=== PATIENT | female | born 1975 | race Caucasian/White ===

== ENCOUNTER → 2016-12-26 | Outpatient (CLI) | payer OTHER ==
[~2016-12-26] MED LIST: AMOXICILLIN500 M2 PO; CYCLOBENZAPRINE10 MG PO; PREDNISONE10 MG PO; VIBRAMYCIN100 MG PO
== END | disposition home or self-care (01) ==
LOC: MAMMO 15:40
DX: Z12.31 Encounter for screening mammogram for malignant neoplasm of breast (principal)

== ENCOUNTER 2017-04-16 16:15 | Emergency (ER) | payer OTHER ==
[~2017-04-16] VITALS: Ht 165.1 cm; Wt 75.7 kg
[2017-04-16] MEDS ORDERED: NAPROSYN500 MG PO (16:52)
[2017-04-16] MEDS ORDERED: CHLORZOXAZONE500 M2 PO (16:52)
== END 2017-04-16 18:06 | disposition home or self-care (01) ==
LOC: ED 16:15
DX: M54.5 Low back pain (principal); R03.0 Elevated blood-pressure reading, without diagnosis of hypertension; F17.200 Nicotine dependence, unspecified, uncomplicated; Z90.710 Acquired absence of both cervix and uterus; Z79.899 Other long term (current) drug therapy; Z88.5 Allergy status to narcotic agent

== ENCOUNTER 2023-02-18 14:30 | Emergency (ER) | payer SELFPAY ==
[~2023-02-18] VITALS: Ht 165.1 cm; Wt 70.3 kg
[~2023-02-18 14:30] MED LIST changes: +AMINOPHYLLIN200 MG PO; +CHLORZOXAZONE500 M2 PO; +NAPROSYN500 MG PO
[2023-02-18 15:44] LABS: BILIRUBIN 2+ (Negative); BLOOD 3+ (Negative); CLARITY Cloudy (Clear); COLOR Dark Yellow (Yellow); GLUCOSE Negative (Negative); KETONE Trace (Negative); LEUKO ESTERASE Trace (Negative); NITRITE Negative (Negative); SPECIFIC GRAVITY 1.025 (1.001-1.030)
[2023-02-18 16:14] LABS: BACTERIA 1+; EPITHELIAL CELLS TNTC; MUCOUS 2+; RBC 51-100 rbc/hpf (0-2)
[2023-02-18 16:38] LABS: BASO % 0.2 % (0.0-1.0); EOS % 0.5 % (1.0-4.0); HEMATOCRIT 36.2 % (37.0-47.0); LYMPH # 2.2 10*3/uL (1.3-4.4); LYMPH % 24.8 % (27.0-41.0); MEAN CELL VOLUME 93.3 fl (81.0-99.0); MEAN CORPUSCULAR HGB 31.2 pg (27.0-31.0); MEAN CORPUSCULAR HGB CONC 33.4 g/dl (33.0-37.0); MEAN PLATELET VOLUME 11.2 fl (9.6-12.3); MONO # 0.6 10*3/uL (0.1-1.0); MONO % 6.4 % (3.0-9.0); NEUT # 5.9 10*3/uL (2.3-7.9); NEUT % 67.9 % (47.0-73.0); PLATELET COUNT AUTOMATED 246 10*3/uL (130-400); RED BLOOD COUNT 3.88 10*6/uL (4.10-5.10); RED CELL DISTRI WIDTH 12.4 % (0-14.5); WHITE BLOOD COUNT 8.7 10*3/uL (4.8-10.8)
[2023-02-18] MEDS ORDERED: CIPRO500 MG PO (16:48)
[2023-02-18 17:03] LABS: ALKALINE PHOSPHATASE 52 U/L (46-116); BUN 6 mg/dl (9-23); CHLORIDE 104 mmol/L (98-107); POTASSIUM 2.6 mmol/L (3.4-5.1); SGPT/ALT 22 U/L (5-49)
== END 2023-02-18 16:58 | disposition home or self-care (01) ==
LOC: ED 14:30
PROVIDERS: Nurse Practitioner Family
DX: N39.0 Urinary tract infection, site not specified (principal); Z88.5 Allergy status to narcotic agent; Z88.8 Allergy status to other drugs, medicaments and biological substances; Z90.710 Acquired absence of both cervix and uterus; F17.210 Nicotine dependence, cigarettes, uncomplicated